=== PATIENT | female | born 1935 | race Caucasian/White ===

== ENCOUNTER → 2017-03-16 | Outpatient (CLI) | payer MEDICARE ==
--- NOTE | 2017-03-16 17:19 | PCVCIMAG ---
APPROVED REPORT Study performed: 03/16/2017 11:14:37 EXAM: Comprehensive 2D, Doppler, and color-flow Echocardiogram Patient Location: Echo lab Status: routine Other Information Study Quality: FairAdequate Indications Aortic Regurgitation. Hypertension. 2D Dimensions LVEF(%): 68.38 (>50%) IVSd: 9.14 (7-11mm)LVOT Diam: 19.71 (18-24mm) LVDd: 40.24 mm LVPWs: 32.64 mm PWd: 7.97 (7-11mm)Ascending Ao: 38.32 (22-36mm) LVDs: 25.06 (25-40mm) Left Atrium: 36.78 (27-40mm) Aortic Root: 31.77 mm LV Single Plane 4CH: 67.64 % LV Single Plane 2CH: 47.46 %Munguia's LVEF: 57.55 % Biplane EF: 60.0 % Volumes Left Atrial Volume (Systole) Single Plane 4CH: 27.58 mLSingle Plane 2CH: 45.57 mL LA ESV Index: 21.00 mL/m2 Aortic Valve AoV Peak Rob.: 1.43 m/s AO Peak Gr.: 8.19 mmHgLVOT Max P.75 mmHg LVOT Max V: 1.09 m/s REBECCA Vmax: 2.32 cm2 Mitral Valve E/A Ratio: 0.7 MV Decel. Time: 228.64 ms MV E Max Rob.: 0.71 m/s MV A Rob.: 0.95 m/s IVRT: 159.17 ms Pulmonary Valve PV Peak Gr.: 1.86 mmHg Pulmonary Vein P Vein S: 0.66 m/sP Vein A: 0.29 m/s P Vein D: 0.39 m/sP Vein A Dur.: 55.4 msec P Vein S/D Ratio: 1.69 Tricuspid Valve TR Peak Rob.: 2.50 m/s TR Peak Gr.: 24.98 mmHg Left Ventricle The left ventricle is normal size. There is normal LV segmental wall motion. There is normal left ventricular wall thickness. Left ventricular systolic function is normal. The left ventricular ejection fraction is within the normal range. LVEF is 60%. The left ventricular diastolic function is normal. Right Ventricle The right ventricle is normal size. The right ventricular systolic function is normal. Atria The left atrium size is normal. The right atrium size is normal. Aortic Valve The aortic valve is normal in structure. Mild aortic regurgitation. There is no aortic valvular stenosis. Mitral Valve The mitral valve is normal in structure. There is no mitral valve regurgitation noted. No evidence of mitral valve stenosis. Tricuspid Valve The tricuspid valve is normal in structure. Trace tricuspid regurgitation. Pulmonic Valve The pulmonary valve is normal in structure. There is no pulmonic valvular regurgitation. Great Vessels The aortic root is normal in size. IVC is normal in size and collapses with >50% inspiration Pericardium There is no pericardial effusion. <Conclusion> The left ventricle is normal size. There is normal left ventricular wall thickness. LVEF is 60%. The left ventricular diastolic function is normal. The right ventricle is normal size. The left atrium size is normal. Mild aortic regurgitation. There is no mitral valve regurgitation noted. Trace tricuspid regurgitation. There is no pericardial effusion.
== END | disposition home or self-care (01) ==
LOC: PCVCIMAG 10:33
PROVIDERS: ATTEND Internal Medicine Cardiovascular Disease
DX: I08.2 Rheumatic disorders of both aortic and tricuspid valves (principal); I10 Essential (primary) hypertension; E78.4 Other hyperlipidemia; K21.9 Gastro-esophageal reflux disease without esophagitis; E03.9 Hypothyroidism, unspecified; M81.0 Age-related osteoporosis without current pathological fracture; J18.9 Pneumonia, unspecified organism; Z90.49 Acquired absence of other specified parts of digestive tract; Z90.710 Acquired absence of both cervix and uterus; Z88.5 Allergy status to narcotic agent; Z88.1 Allergy status to other antibiotic agents; Z79.899 Other long term (current) drug therapy; Z87.442 Personal history of urinary calculi
CPT/HCPCS: 80061; 93005; 93306; G0463

== ENCOUNTER → 2017-10-16 | Outpatient (CLI) | payer MEDICARE | END | disposition home or self-care (01) | LOC: PCVCCLINIC 10:30 | DX: I10 Essential (primary) hypertension (principal); I35.1 Nonrheumatic aortic (valve) insufficiency; E78.00 Pure hypercholesterolemia, unspecified; R94.31 Abnormal electrocardiogram [ECG] [EKG]; Z79.899 Other long term (current) drug therapy | CPT/HCPCS: 80061; 93005; G0463 ==

== ENCOUNTER → 2018-12-29 | Outpatient (CLI) | payer MEDICARE ==
[~2018-12-29] MED LIST: REGADENOSON 0.4 MG/5 ML DISP.SYRIN. IV ONE
--- NOTE | 2018-12-30 12:15 | PCVCIMAG ---
APPROVED REPORT Imaging Protocol: Rest Tc-99m/Stress Tc-99m 1 day Study performed: 12/29/2018 14:01:50 Indication: Atrial Fibrillation, RVR Patient Location: Out-Patient Stress Nurse: Kim Lawton RN [place] Tech:Rosmery KiddLIDIA chaseMT Ht: 5 ft 4 in Wt: 160 lbs BSA: 1.78 m2 HR: 75 bpm BP: 141/67 mmHg BMI: 27.4 Rhythm: Sinus Rhythm with inverted P waves Medical History Medical History: Atrial Fibrillation, HTN, Hyperlipidemia Medications: Eliquis, Atorvastatin, Lanoxin, Cardizem Allergies: Red Dye, Sulfa, Lexapro, Codeine Cardiac Risk Factors: Age Pretest Chest Pain Characteristics: No chest pain Exercise History: Sedentary Resting Data Rest SPECT myocardial perfusion imaging was performed in supine position 45 minutes following the intravenous injection of 10.1 mCi of Tc-99m Sestamibi. Time of rest injection: 1315 Date: 12/29/2018 Administration Route: IV Administration Site: Right AC Pharmacologic Stress Pharmacologic stress test was performed by injecting Regadenoson 0.4 mg IV push over 10-15 seconds immediately followed by the intravenous injection of 34.5 mCi of Tc-99m Sestamibi. Time of stress injection: 1430 Date: 12/29/2018 Administration Route: IV Administration Site: Right AC Gated Stress SPECT was performed 45 minutes after stress injection. The images were gated to evaluate regional wall motion and calculate left ventricular ejection fraction. Stress Test Details Stress Test: Pharmacologic stress testing performed using 0.4 mg of regadenoson per 5 mL given IV over 10 seconds. Reason for pharmacologic stress test: Back pain. HRMax Heart Rate (APMHR): 137 bpm Resting HR: 75 bpmTarget HR (85% APMHR): 116 bpm Max HR Achieved: 88 bpm % of APMHR: 64 Recovery HR: 82 bpm BP Resting BP: 141/67 mmHg Max BP: 130/62 mmHg Recovery BP: 121/57 mmHg ECG Resting ECG: Sinus Rhythm with inverted P waves Stress ECG: Sinus Rhythm with inverted P waves Arrhythmia: None Recovery ECG: Sinus Rhythm with inverted P waves Clinical Reason for Termination: Completed protocol Stress Symptoms: Abdominal discomfort Exercise duration: 0 min 55 sec Symptoms resolved with caffeine. Stress ECG Conclusion ECG: Non-ischemic Study Quality Study: Good Study Data Post stress, the left ventricular ejection was 78%.. SSS: 0 SRS: 2 SDS: 0 TID = 0.88. Perfusion No evidence of stress induced ischemia or prior myocardial infarction. Wall Motion Normal left ventricular size and function with no regional wall motion abnormalities. Nuclear Conclusion No evidence of stress induced ischemia or prior myocardial infarction. Normal left ventricular size and function with no regional wall motion abnormalities. Post stress, the left ventricular ejection was 78%. No change since prior study dated June 2015. Interpreted by: Emir Vinson MD Electronically Approved: 12/30/2018 09:14:50 <Conclusion> ECG: Non-ischemic
== END | disposition home or self-care (01) ==
LOC: PCVCIMAG 13:43
PROVIDERS: ATTEND Internal Medicine Cardiovascular Disease
DX: I48.91 Unspecified atrial fibrillation (principal)
CPT/HCPCS: 78452; 93017; A9500; J2785

== ENCOUNTER → 2019-06-03 | Outpatient (CLI) | payer MEDICARE ==
--- NOTE | 2019-06-07 12:26 | PCVCIMAG ---
APPROVED REPORT Study performed: 06/03/2019 08:50:15 EXAM: Comprehensive 2D, Doppler, and color-flow Echocardiogram Patient Location: Echo lab Status: routine BSA: 1.78 HR: 53 bpmBP: 126/64 mmHg Rhythm: Bradycardia Other Information Study Quality: Adequate Indications Dyspnea edema, aortic insufficiency, parox a fib 2D Dimensions IVSd: 10.87 (7-11mm) LVDd: 41.66 mm PWd: 11.06 (7-11mm)Ascending Ao: 42.73 (22-36mm) LVDs: 27.04 (25-40mm) Left Atrium: 37.38 (27-40mm) Aortic Root: 37.09 mm LV Single Plane 4CH: 67.83 % LV Single Plane 2CH: 62.75 % Biplane EF: 64.8 % Volumes Left Atrial Volume (Systole) Single Plane 4CH: 71.23 mLSingle Plane 2CH: 99.08 mL LA ESV Index: 49.00 mL/m2 Aortic Valve AoV Peak Rob.: 1.82 m/s AO Peak Gr.: 13.18 mmHgLVOT Max P.81 mmHg LVOT Max V: 1.48 m/s AI Vmax: 4.19 m/s AI [place]: 2.20 m/s2 AI PHT: 552.01 ms Mitral Valve IVRT: 121.11 ms Pulmonary Valve PV Peak Rob.: 0.65 m/sPV Peak Gr.: 1.71 mmHg Pulmonary Vein P Vein S: 0.28 m/sP Vein A: 0.37 m/s P Vein D: 0.54 m/sP Vein A Dur.: 145.3 msec P Vein S/D Ratio: 0.52 Tricuspid Valve TR Peak Rob.: 2.49 m/s TR Peak Gr.: 24.82 mmHg Left Ventricle The left ventricle is normal size. There is normal LV segmental wall motion. There is normal left ventricular wall thickness. Left ventricular systolic function is normal. The left ventricular ejection fraction is within the normal range. LVEF is 65%. Grade I - abnormal relaxation pattern. Right Ventricle The right ventricle is normal size. The right ventricular systolic function is normal. Atria Left atrium is severely dilated. Right atrium is moderately dilated. Aortic Valve The aortic valve is normal in structure. Mild to moderate aortic regurgitation. There is no aortic valvular stenosis. Mitral Valve The mitral valve is normal in structure. Mild mitral regurgitation. No evidence of mitral valve stenosis. Tricuspid Valve The tricuspid valve is normal in structure. Mild tricuspid regurgitation with PAP of 32 mmHg. Pulmonic Valve The pulmonary valve is normal in structure. Mild pulmonic regurgitation. Great Vessels The aortic root is normal in size. 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 IVC is normal in size and collapses >50% with inspiration. Pericardium There is no pericardial effusion. There is no pleural effusion. <Conclusion> The left ventricle is normal size. There is normal left ventricular wall thickness. The left ventricle is normal size. LVEF is 65%. Grade I - abnormal relaxation pattern. Left atrium is severely dilated. Right atrium is moderately dilated. Mild to moderate aortic regurgitation. Mild mitral regurgitation. Mild tricuspid regurgitation with PAP of 32 mmHg. The aortic root is normal in size. Mild to moderate aortic regurgitation. Mild mitral regurgitation. Mild tricuspid regurgitation with PAP of 32 mmHg. The aortic root is normal in size. 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 There is no pericardial effusion.
== END | disposition home or self-care (01) ==
LOC: PCVCIMAG 08:53
PROVIDERS: ATTEND Internal Medicine Cardiovascular Disease
DX: I08.8 Other rheumatic multiple valve diseases (principal); I11.9 Hypertensive heart disease without heart failure; I48.0 Paroxysmal atrial fibrillation; Z88.5 Allergy status to narcotic agent; Z88.2 Allergy status to sulfonamides; Z91.041 Radiographic dye allergy status; Z91.048 Other nonmedicinal substance allergy status; Z88.8 Allergy status to other drugs, medicaments and biological substances
CPT/HCPCS: 93306